=== PATIENT | female | born 1960 | race Caucasian/White ===

== ENCOUNTER 2018-03-21 12:34 | Day surgery (SDC) | payer OTHER ==
[2018-03-21] MEDS ORDERED: FENTAnyl 50 MCG/ML VIAL (15:19)
[2018-03-21] MEDS ORDERED: MIDAZOLAM 1 MG/ML 2 ML INJ (15:19)
== END 2018-03-21 17:16 | disposition home or self-care (01) ==
LOC: GIL 12:34
DX: Z12.11 Encounter for screening for malignant neoplasm of colon (principal); K29.30 Chronic superficial gastritis without bleeding; K44.9 Diaphragmatic hernia without obstruction or gangrene; K21.0 Gastro-esophageal reflux disease with esophagitis; I10 Essential (primary) hypertension
CPT/HCPCS: 43239; 88305; 88312

== ENCOUNTER 2018-05-10 13:32 | Day surgery (SDC) | payer OTHER ==
[2018-05-10] MEDS ORDERED: MIDAZOLAM 1 MG/ML 2 ML INJ ×2 (14:55→14:56)
[2018-05-10] MEDS ORDERED: FENTAnyl 50 MCG/ML VIAL (14:55)
== END 2018-05-10 16:09 | disposition home or self-care (01) ==
LOC: GIL 13:32
DX: Z12.11 Encounter for screening for malignant neoplasm of colon (principal); D12.3 Benign neoplasm of transverse colon; K64.8 Other hemorrhoids; I10 Essential (primary) hypertension
CPT/HCPCS: 45380; 88305

== ENCOUNTER 2019-03-27 10:56 | Day surgery (SDC) | payer OTHER ==
[2019-03-27] MEDS: LACTATED RINGER'S 1,000 ML IV* (07:00)
[~2019-03-27 10:56] MED LIST: MIDAZOLAM 1 MG/ML 2 ML INJ; PHENYLephrine 10 MG INJ; morphine SULFATE/PF (10 MG/10 ML) INJ
[2019-03-27] MEDS ORDERED: LIDOCAINE 2% (SDV) 5 ML INJ (12:12)
[2019-03-27] MEDS ORDERED: ROCURONIUM 50 MG INJ (12:12)
[2019-03-27] MEDS ORDERED: ETOMIDATE 20 MG INJ (12:12)
[2019-03-27] MEDS ORDERED: CEFAZOLIN 1 GM INJ ×2 (12:13→13:45)
[2019-03-27] MEDS ORDERED: PHENYLephrine 10 MG INJ (12:19)
[2019-03-27] MEDS ORDERED: DIPHENHYDRAMINE 50 MG INJ IV (13:00)
[2019-03-27] MEDS ORDERED: MEPERIDINE 25 MG INJ IV (13:00)
[2019-03-27] MEDS ORDERED: FENTAnyl 50 MCG/ML VIAL IV ×3 (13:00)
[2019-03-27] MEDS ORDERED: HYDROmorphONE 1 MG/5 ML IV SYRINGE IV ×3 (13:00)
[2019-03-27] MEDS ORDERED: ONDANSETRON 4 MG INJ IV (13:00)
[2019-03-27] MEDS ORDERED: PROPOFOL 0 ML (13:38)
[2019-03-27] MEDS ORDERED: FENTAnyl 50 MCG/ML VIAL (13:38)
[2019-03-27] MEDS ORDERED: ONDANSETRON 4 MG INJ (13:39)
[2019-03-27] MEDS ORDERED: METOCLOPRAMIDE 10 MG INJ (13:39)
[2019-03-27] MEDS ORDERED: PROPOFOL 20 ML (13:45)
== END 2019-03-27 16:31 | disposition home or self-care (01) ==
LOC: SDS 10:56
DX: N85.00 Endometrial hyperplasia, unspecified (principal); I10 Essential (primary) hypertension
CPT/HCPCS: 58558; 71045; 88305